=== PATIENT | male | born 1950 | race African-American/Black ===

== ENCOUNTER → 2018-07-15 | Outpatient (CLI) | payer MEDICARE, OTHER ==
--- NOTE | 2018-07-15 15:54 | RADIOLOGY REPORT (SQ) ---
EXAM DESCRIPTION: SMALL BOWEL SERIES COMPLETED DATE/TIME: 07/15/2018 10:12 am REASON FOR STUDY: IRON DEFICIENCY ANEMIA D50.9 IRON DEFICIENCY ANEMIA, UNSPECIFIED COMPARISON: None. FLUOROSCOPY TIME: 2.7 minutes of fluoroscopy was used. 14 images saved to PACS. LIMITATIONS: None. PROCEDURE: Initial hospitalist nocturnist physician image of abdomen acquired, followed by administration of oral contrast. Se rial radiographic images acquired. Fluoroscopic images recorded of the terminal ileum and other vazquez cated areas. All images stored on PACS. FINDINGS: [employer] DEVELOPER KUB: Non-obstructive bowel pattern. No abnormal calcifications. Soft tissue planes normal. STOMACH: No significant reflux. Normal distention without abnormality. DUODENUM: Normal mucosal pattern with adequate distention. No displacement or obstruction. JEJUNUM: Normal mucosal pattern. No dilatation, segmentation, strictures or masses. ILEUM: Normal mucosal pattern. No dilatation, segmentation, strictures or masses. TERMINAL ILEUM AND ILEO-CECAL VALVE: Normal mucosal pattern without "cobble-stoning" or stricture. N ormal compression. PROXIMAL COLON: Incompletely imaged. No abnormality. OTHER: Transit time for contrast reached the cecum was normal with filling into the ascending colon a t 90 minutes. IMPRESSION: NORMAL SMALL BOWEL EXAM. COMMENT: Quality ID [id number]: Final reports for procedures using fluoroscopy that document radiation exp osure indices, or exposure time and number of fluorographic images (if radiation exposure indices are not available) TECHNICAL DOCUMENTATION: JOB ID: [id number]- All Rights Reserved Reading location - IP/workstation name: [email or web address] [id number]
== END ==
LOC: RAD 07:56
PROVIDERS: ATTEND Internal Medicine Gastroenterology
DX: D50.9 Iron deficiency anemia, unspecified (principal)
CPT/HCPCS: 74250

== ENCOUNTER 2019-07-21 16:34 | Emergency (ER) | payer MEDICARE, OTHER ==
[2019-07-21 16:43] VITALS: BP 159/77
--- NOTE | 2019-07-21 16:50 | ER Document Report ---
ED Medical Screen (RME) - General Chief Complaint: Foot Pain Stated Complaint: LEFT FOOT WOUND Time Seen by Provider: 07/21/19 16:44 Primary Care Provider: ARYAN YANEZ FNP [Primary Care Provider] - Follow up as needed Mode of Arrival: Wheelchair Information source: Patient Notes: Otherwise healthy 68-year-old male presenting to the emergency department with concern for left foot infection. Patient denies any history of diabetes. Reports bacterial and fungal foot infection ongoing for the last 6 to 8 weeks. He states he has taken multiple oral antibiotics for this without any relief. Denies any fever or chills. Foul smelling infected skin noted to the left forefoot. I have greeted and performed a rapid initial assessment of this patient. A comprehensive ED assessment and evaluation of the patient, analysis of test results and completion of the medical decision making process will be conducted by additional ED providers. I have specifically instructed the patient or family members with the patient to immediately return to any nursing staff should anything change in the patient's condition or with their chief complaint. TRAVEL OUTSIDE OF THE [place] IN LAST 30 DAYS: No - Related Data Allergies/Adverse Reactions: aspirin [Aspirin] Allergy (Severe, Verified 03/25/14 07:40) n and v lisinopril [Lisinopril] Allergy (Severe, Verified 03/25/14 07:40) Shortness of Breath metronidazole [From Flagyl] Allergy (Intermediate, Verified 07/21/19 16:48) Hives contrast dye Allergy (Severe, Uncoded 03/25/14 07:40) Hives Past Medical History - Past Medical History Cardiac Medical History: Reports: Hx Hypercholesterolemia, Hx Hypertension - on meds Denies: Hx Coronary Artery Disease, Hx Heart Attack Pulmonary Medical History: Denies: Hx Asthma, Hx Bronchitis, Hx COPD, Hx Pneumonia Neurological Medical History: Denies: Hx Cerebrovascular Accident, Hx Seizures Musculoskeltal Medical History: Reports Hx Arthritis - Immunizations Immunizations up to date: Yes Hx Diphtheria, Pertussis, Tetanus Vaccination: Yes Physical Exam - Vital signs Vitals: Temp Pulse Resp BP Pulse Ox 98.9 F 69 16 159/77 H 95 07/21/19 16:40 07/21/19 16:40 07/21/19 16:40 07/21/19 16:40 07/21/19 16:40 Course - Vital Signs Vital signs: Temp Pulse Resp BP Pulse Ox 98.9 F 69 16 159/77 H 95 07/21/19 16:40 07/21/19 16:40 07/21/19 16:40 07/21/19 16:40 07/21/19 16:40 Doctor's Discharge - Discharge Referrals: ARYAN YANEZ FNP [Primary Care Provider] - Follow up as needed
--- NOTE | 2019-07-21 17:31 | RADIOLOGY REPORT (SQ) ---
EXAM DESCRIPTION: FOOT LEFT COMPLETE COMPLETED DATE/TIME: 07/21/2019 5:07 pm REASON FOR STUDY: Left foot infection COMPARISON: None. NUMBER OF VIEWS: Three views. TECHNIQUE: AP, lateral and oblique radiographic images acquired of the left foot. LIMITATIONS: None. FINDINGS: MINERALIZATION: Normal. BONES: No acute fracture or dislocation. No worrisome bone lesions. No evidence of erosions. Calca josiah enthesopathy is present JOINTS: No effusions. SOFT TISSUES: No soft tissue swelling. No radiopaque retained foreign bodies. There are vascular ca lcifications present. OTHER: No other significant finding. IMPRESSION: No radiographic findings of osteomyelitis or other acute abnormality. TECHNICAL DOCUMENTATION: JOB ID: [id number] [employer]- All Rights Reserved Reading location - IP/workstation name: [email or web address]
[2019-07-21] MEDS ORDERED: MORPHINE SULFATE 10 MG/ML INJ IV ONE (17:41)
--- NOTE | 2019-07-21 17:44 | ER Document Report ---
ED Extremity Problem, Lower - General Mode of Arrival: Wheelchair TRAVEL OUTSIDE OF THE [place] IN LAST 30 DAYS: No - HPI Patient complains to provider of: Pain, Swelling Location: Foot Occurred: Other - 1 month, worse past week Onset/Duration: Worse Quality of pain: Achy Pain Level: 4 Recent injury: No Associated symptoms: Painful ambulation Exacerbated by: Movement, Walking <SUZETTE HALL - Last Filed: 07/21/19 20:08> <JEANE BRISENO - Last Filed: 07/22/19 03:41> - General Chief Complaint: Wound Infection Stated Complaint: LEFT FOOT WOUND Time Seen by Provider: 07/21/19 17:24 Primary Care Provider: Wound Care [Provider Group] - Follow up tomorrow ARYAN YANEZ FNP [Primary Care Provider] - Follow up as needed MAUREEN SETH DPM [NO LOCAL MD] - Follow up tomorrow Notes: Patient presents complaining of left foot infection. Patient states he has been fighting a fungal infection for the past 3 months. Patient states that he had been placed on terbinafine and Flagyl in May and the infection started to improve. Patient states that symptoms started to worsen about a month ago and he was placed back on these medications last week. Patient states that he has had a pruritic skin rash since starting the Flagyl and thinks that he is having allergic reaction to this medication. Patient also reports that the infection seems to be worsening. Patient denies any fever nausea or vomiting. Patient denies any history of diabetes. Patient does report a history of peripheral artery disease and has had vascular stenting to the bilateral lower extremities. Patient states that his vascular surgeon had stated that he may need additional surgery to the left lower extremity. (SUZETTE HALL) - Related Data Allergies/Adverse Reactions: aspirin [Aspirin] Allergy (Severe, Verified 03/25/14 07:40) n and v lisinopril [Lisinopril] Allergy (Severe, Verified 03/25/14 07:40) Shortness of Breath metronidazole [From Flagyl] Allergy (Intermediate, Verified 07/21/19 16:48) Hives contrast dye Allergy (Severe, Uncoded 03/25/14 07:40) Hives Past Medical History - General Information source: Patient - Social History Smoking Status: Current Every Day Smoker Chew tobacco use (# tins/day): No Frequency of alcohol use: daily Drug Abuse: None Lives with: Spouse/Significant other Family History: Reviewed & Not Pertinent Patient has suicidal ideation: No Patient has homicidal ideation: No - Past Medical History Cardiac Medical History: Reports: Hx Hypercholesterolemia, Hx Hypertension - on meds, Hx Peripheral Vascular Disease Pulmonary Medical History: Denies: Hx Asthma, Hx Bronchitis, Hx COPD, Hx Pneumonia Neurological Medical History: Denies: Hx Cerebrovascular Accident, Hx Seizures Musculoskeletal Medical History: Reports Hx Arthritis Past Surgical History: Reports: Hx Coronary Stent, Hx Vascular Surgery - Immunizations Immunizations up to date: Yes Hx Diphtheria, Pertussis, Tetanus Vaccination: Yes <SUZETTE HALL - Last Filed: 07/21/19 20:08> Review of Systems - Review of Systems Constitutional: Recent illness - fungal infection to foot. denies: Chills, Fever EENT: No symptoms reported Cardiovascular: No symptoms reported Respiratory: No symptoms reported. denies: Cough, Short of breath Gastrointestinal: No symptoms reported. denies: Nausea, Vomiting Genitourinary: No symptoms reported Male Genitourinary: No symptoms reported Musculoskeletal: Other - Left foot pain swelling. denies: Back pain Skin: Rash - Bilateral upper arms, Other - Fungal skin infection to the left foot Hematologic/Lymphatic: No symptoms reported Neurological/Psychological: No symptoms reported <SUZETTE HALL - Last Filed: 07/21/19 20:08> Physical Exam - General General appearance: Appears well, Alert In distress: Mild - HEENT Head: Normocephalic, Atraumatic Eyes: Normal Nasal: Normal Mouth/Lips: Normal Neck: Normal, Supple - Respiratory Respiratory status: No respiratory distress Chest status: Nontender Breath sounds: Normal. No: Rales, Rhonchi, Stridor, Wheezing Chest palpation: Normal - Cardiovascular Rhythm: Regular Heart sounds: S1 appreciated, S2 appreciated - Back Back: Normal - Extremities General upper extremity: Normal inspection, Normal strength Foot: Other - Patient with extensive exudative wound to the dorsal and plantar aspect of left foot into the webspace in between the toes. Patient with mild erythema and edema to left foot. No palpable dorsalis pedis pulse. Patient with foul odor to the wound. - Neurological Neuro grossly intact: Yes Cognition: Normal Orientation: AAOx4 [place] Coma Scale Eye Opening: Spontaneous [place] Coma Scale Verbal: Oriented [place] Coma Scale Motor: Obeys Commands [place] Coma Scale Total: 15 - Psychological Associated symptoms: Normal affect, Normal mood - Skin Skin Temperature: Warm Skin Moisture: Dry Skin Color: Erythema - Left foot Skin irregularity: Rash - Scaling papular rash to bilateral upper extremities Irregularity with: Swelling, Tenderness - Left foot, Warmth, Inflammation, Weeping <ISABEL,YANIRAKARMA - Last Filed: 07/21/19 20:08> - Vital signs Vitals: Temp Pulse Resp BP Pulse Ox 98.9 F 69 16 159/77 H 95 07/21/19 16:40 07/21/19 16:40 07/21/19 16:40 07/21/19 16:40 07/21/19 16:40 - Skin Notes: Left cloth finishing range tender, mildly erythematous, swollen with exudative wound webspace between toes that extends to the dorsum and plantar surface of the foot. (SUZETTE HALL) Course - Laboratory Result Diagrams: 07/21/19 17:50 07/21/19 17:50 - Diagnostic Test Radiology reviewed: Reports reviewed <SUZETTE HALL - Last Filed: 07/21/19 20:08> - Laboratory Result Diagrams: 07/21/19 17:50 07/21/19 17:50 <JEANE BRISENO - Last Filed: 07/22/19 03:41> - Re-evaluation Re-evalutation: 07/21/19 17:[address] Briseno, Dr. Briseno to bedside for examination. Feels that patient likely has a fungal infection as well as a bacterial infection in the setting of peripheral artery disease. Recommend starting an additional antibiotic to cover gram-positive organisms such as clindamycin. Also recom mends follow-up with the wound clinic. 07/21/19 19:02 Arterial Doppler performed, patient with monophasic flow throughout the leg. Patient does have calcification of the vessels per the coil repair technician. Consulted with Dr. Briseno again who recommends outpatient follow-up with wound clinic for further evaluation. Agrees with plan for discharge with the addition of clindamycin to help manage superimposed bacterial infection on top of his present fungal infection. 07/21/19 20:12 Patient given a referral form for the wound clinic and instructions for follow- up. Good return precautions discussed. Patient verbalized understanding and is agreeable with discharge plan of care. (SUZETTE HALL) 07/22/19 03:39 Patient seems to have a bacterial and fungal infection of his foot. Patient told to continue oral antifungals, use topical antifungals, use topical antibacterial ointment and he was prescribed Clindamycin PO. Patient told to follow up with a PCP, Mail Caller, or Wound Clinic. (DEANGELOJEANE Dereck) - Vital Signs Vital signs: Temp Pulse Resp BP Pulse Ox 98.9 F 69 16 159/77 H 95 07/21/19 16:40 07/21/19 16:40 07/21/19 16:40 07/21/19 16:40 07/21/19 16:40 - Laboratory Laboratory results interpreted by wa: 07/21/19 07/21/19 17:50 17:50 MCV 100 H MCH 35.7 H [place] % (Auto) 17.4 H Eos % (Auto) 8.7 H ESR 67 H Sodium 130.8 L Chloride 93 L C-Reactive Protein 48.8 H Discharge <SUZETTE HALL - Last Filed: 07/21/19 20:08> <JEANE BRISENO - Last Filed: 07/22/19 03:41> - Discharge Clinical Impression: Left foot infection Cellulitis Qualifiers: Site of cellulitis: unspecified site Qualified Code(s): L03.90 - Cellulitis, unspecified Condition: Stable Disposition: HOME, SELF-CARE Instructions: Cellulitis ([facility]), Clindamycin ([facility]), Oral Narcotic Medication ([facility]), Skin Fungus ([facility]) Additional Instructions: Return immediately for any new or worsening symptoms Followup with your primary care provider, call tomorrow to make a followup appointment Continue your antibiotics that you are previously prescribed. Follow-up with the wound clinic for further management. Prescriptions: Clindamycin HCl 300 mg PO QID #28 capsule Hydrocodone/Acetaminophen [[place] 5-325 mg Tablet] 1 tab PO Q6 PRN #12 tablet PRN Reason: Referrals: ARYAN YANEZ FNP [Primary Care Provider] - Follow up as needed Wound Care [Provider Group] - Follow up tomorrow MAUREEN SETH DPM [NO LOCAL MD] - Follow up tomorrow
[2019-07-21] MEDS ORDERED: CLINDAMYCIN 600 MG/D5W RTU 600 MG/50 ML RTUPB IV ONE (17:55)
[2019-07-21 18:18] LABS: ABSOLUTE MONOCYTES (AUTO) 0.9 10^3/uL (0.1-1.4); ABSOLUTE NEUT (AUTO) 2.7 10^3/uL (1.7-8.2); BASOPHILS % (AUTO) 0.7 % (0-2); MEAN CORPUSCULAR VOLUME 100 fl (80-97); TOTAL CELLS COUNTED % (AUTO) 100 %
[2019-07-21 18:32] LABS: ALKALINE PHOSPHATASE 91 U/L (38-126); ANION GAP 9 (5-19); ASPARTATE AMINO TRANSFERASE 27 U/L (17-59); BILIRUBIN,DIRECT 0.1 mg/dL (0.0-0.4); BILIRUBIN,TOTAL 0.9 mg/dL (0.2-1.3); BLOOD UREA NITROGEN 8 mg/dL (7-20); CALCIUM 9.2 mg/dL (8.4-10.2); CARBON DIOXIDE 29 mmol/L (22-30); CHLORIDE 93 mmol/L (98-107); GLUCOSE 97 mg/dL (75-110)
[2019-07-21 18:35] LABS: ABSOLUTE EOSINOPHILS # (AUTO) 0.4 10^3/uL (0.0-0.6); EOSINOPHILS % (AUTO) 8.7 % (0-6); HEMATOCRIT 45.5 % (37.9-51.0); HEMOGLOBIN 16.2 g/dL (13.5-17.0); LYMPHOCYTES % (AUTO) 19.2 % (13-45); MEAN CORPUSCULAR HEMOGLOBIN 35.7 pg (27.0-33.4); MEAN CORPUSCULAR HGB CONC 35.7 g/dL (32.0-36.0); MONOCYTES % (AUTO) 17.4 % (3-13); PLATELET COUNT 213 10^3/uL (150-450); RED BLOOD COUNT 4.55 10^6/uL (4.35-5.55); RED CELL DISTRIBUTION WIDTH 11.9 % (11.5-14.0)
[2019-07-21 18:51] LABS: C-REACTIVE PROTEIN 48.8 mg/L (<10.0)
[2019-07-21 19:11] LABS: ERYTHROCYTE SEDIMENTATION RATE 67 mm/hr (0-20)
[2019-07-21] MEDS ORDERED: MUPIROCIN CALCIUM 2% CREAM 15 GM TP ONE (19:19)
[2019-07-21] MEDS ORDERED: HYDROCODONE/ACETAMINOPHEN 5-325 MG TABLET PO ONE (19:19)
== END 2019-07-21 20:25 | disposition home or self-care (01) ==
LOC: ER 16:34
DX: L08.9 Local infection of the skin and subcutaneous tissue, unspecified (principal); L03.90 Cellulitis, unspecified; M79.89 Other specified soft tissue disorders; I73.9 Peripheral vascular disease, unspecified; L29.9 Pruritus, unspecified; F17.200 Nicotine dependence, unspecified, uncomplicated; E78.00 Pure hypercholesterolemia, unspecified; Z88.6 Allergy status to analgesic agent
CPT/HCPCS: 99284; 96375; 96365; 36415; 87040; 87070; 87205; 85025; 85652; 87075; 86140; 87077; 80053; 93926; 73630; A9270 ×2; J2270; 87186; J3490

== ENCOUNTER → 2019-08-05 | Outpatient (CLI) | payer MEDICARE, OTHER ==
--- NOTE | 2019-08-06 13:52 | RADIOLOGY REPORT (SQ) ---
EXAM DESCRIPTION: ARTERIAL LOWER EXTREM BILAT COMPLETED DATE/TIME: 08/05/2019 1:35 pm REASON FOR STUDY: LEFT CALF ULCER L97.222 NON-PRESSURE CHRONIC ULCER OF LEFT CALF W FAT LAYER COMPARISON: None. TECHNIQUE: Dynamic and static mcginnis scale and color images acquired of the lower extremity arteries. Additional selected spectral images recorded. ABIs recorded. LIMITATIONS: Unable to obtain ankle pressures on the right. FINDINGS: RIGHT LEG: ABIS: Could not be obtained. INFLOW ARTERIES: No stenosis. FEMORAL ARTERIES:Multiphasic waveforms. Chronic short segment occlusion distal SFA with associated co llaterals and reconstituted flow. POPLITEAL ARTERY:Diminished flow. PATENT TIBIOPERONEAL TRUNK AND 3 VESSEL RUNOFF: Tibioperoneal trunk not visualized. Three-vessel run off. Occluded anterior tibial distally. TBI: Not performed. OTHER: No other significant finding. LEFT LEG: ABIS: 0.22 to 0.45 INFLOW ARTERIES: No stenosis. FEMORAL ARTERIES:Multiphasic waveforms. Elevated velocity 3.25 m/sec mid SFA. POPLITEAL ARTERY:Primarily biphasic. Spectral broadening. No focal stenosis. PATENT TIBIOPERONEAL TRUNK AND 3 VESSEL RUNOFF: Tibioperoneal trunk not visualized. Three-vessel run off. TBI: Not performed. OTHER: No other significant finding. IMPRESSION: Right: Accurate VIDHYA could not be obtained. Chronic occlusion distal SFA with reconstit uted flow and diminished flow popliteal artery and runoff. Left: Severe ischemia based on VIDHYA. Estimated 70% stenosis mid SFA. COMMENT: [facility] NORMAL: Greater than 1.0 MINIMAL DISEASE: 0.9 to 1.0 CLAUDICATION: 0.5 to 0.9 SEVERE ARTERIAL DISEASE: Less than 0.5 [facility] NORMAL: Greater than 1.0 (1.2 If Heavy Calcifications) NORMAL TO MILD ISCHEMIA: 0.8 to 1.0 MODERATE ISCHEMIA: 0.4 to 0.8 SEVERE ISCHEMIA: Less than 0.4 TECHNICAL DOCUMENTATION: JOB ID: [id number] 2010 [employer]- All Rights Reserved Reading location - IP/workstation name: [email or web address]
== END ==
LOC: SP 09:55
PROVIDERS: ATTEND Preventive Medicine Undersea and Hyperbaric Medicine
DX: L97.222 Non-pressure chronic ulcer of left calf with fat layer exposed (principal)
CPT/HCPCS: 93922; 93925